=== PATIENT | female | born 1950 | race Caucasian/White ===

== ENCOUNTER 2018-08-20 07:09 | Day surgery (SDC) | payer OTHER ==
[2018-08-20] MEDS ORDERED: Lactated Ringers 1,000 ML IV ONE ×2 (07:14→10:24)
[2018-08-20] MEDS ORDERED: Lactated Ringers 1,000 ML IV SCH (07:30)
--- NOTE | 2018-08-20 07:40 | HP ---
DATE OF SURGERY: 08/20/2018 ADMISSION DIAGNOSIS: Positive Cologuard. ANTICIPATED PROCEDURE: Colonoscopy. HISTORY OF PRESENT ILLNESS: A 68 year-old ten years ago normal exam. PAST MEDICAL HISTORY: ALLERGIES: ASPIRIN. MEDICATIONS: Protonix, Pravastatin. PAST SURGICAL HISTORY: Back surgery. Hernia surgery. SOCIAL HISTORY: Negative. FAMILY HISTORY: Negative. REVIEW OF SYSTEMS: Elevated cholesterol. PHYSICAL EXAMINATION: VITAL SIGNS: Normal. CHEST: Clear. COR: Regular. ABDOMEN: Satisfactory. IMPRESSION: Positive Cologuard. PLAN: Colonoscopy.
[2018-08-20] MEDS ORDERED: DIPRIVAN 200 MG/20 ML IV ONE ×2 (09:41→09:54)
[2018-08-20 10:59] VITALS: O2SAT 99
[2018-08-20 11:09] VITALS: BP 118/57; PULSE 60
--- NOTE | 2018-08-20 13:30 | OP ---
SURGERY DATE/TIME: 08/20/2018 0947 PREOPERATIVE DIAGNOSIS: Positive Cologuard. POSTOPERATIVE DIAGNOSIS: Basically normal. PROCEDURE: Colonoscopy complete to cecum. SURGEON: James Corona M.D. ANESTHESIA: MAC. COMPLICATIONS: None. CONDITION: Stable. INDICATION: A patient requiring evaluation. DESCRIPTION OF PROCEDURE: Taken to endoscopy. MAC sedation provided. Excellent anesthesia level was present. Anal digital examination satisfactory. She does have severe internal hemorrhoids. Rectum, sigmoid, descending, splenic, transverse, hepatic quite redundant. It took some effort to get around the far edge down the ascending, base of cecum. Base of cecum, ileocecal valve and appendiceal orifice normal. Ascending, hepatic, transverse, splenic, descending, sigmoid, rectum, anus. In the sigmoid itself there may have been just a very minimal colitis. I wonder if this does not help explain her positive Cologuard but it was really quite minimal. No biopsies were taken. Basically normal exam. FOLLOW UP: We will put at five years since she did have positive Cologuard.
== END 2018-08-20 11:20 | disposition home or self-care (01) ==
LOC: SDC 07:09
PROVIDERS: ATTEND Surgery
DX: Z12.11 Encounter for screening for malignant neoplasm of colon (principal); K64.8 Other hemorrhoids
CPT/HCPCS: J2704